=== PATIENT | male | born 1965 | race Hispanic/Latino ===

== ENCOUNTER → 2020-05-17 | Outpatient (CLI) | payer MEDICARE ==
[~2020-05-17] MED LIST: ATOR20TA65 PO; BISO10TA PO; CALC0.5C11 PO; CLON0.2T PO; FAMO40TA7 PO; FERR210T PO; FOLI1TAB85 PO; INSU100V37 SQ; LOSA100T58 PO; NIFE90TA45 PO; NITR0.4T50 SL; POTA-79 PO; TORS20TA4 PO
== END | disposition home or self-care (01) ==
LOC: SHCH 08:19
PROVIDERS: ATTEND Internal Medicine Cardiovascular Disease
DX: I25.10 Atherosclerotic heart disease of native coronary artery without angina pectoris (principal)
CPT/HCPCS: 93306; 93356